=== PATIENT | male | born 1975 | race Caucasian/White ===

== ENCOUNTER 2020-06-06 16:54 | Emergency (ER) | payer SELFPAY ==
[~2020-06-06] VITALS: Ht 182 cm; Wt 79.0 kg
--- NOTE | 2020-06-06 18:30 | ED Cough/URI ---
General Chief Complaint: Cough/Cold/Flu Symptoms Stated Complaint: COUGH/SOB Nursing Triage Note: ARRIVED VIA AMB TO ROOM 10 IN [facility] WITH COMPLAINTS OF SOA AND COUGH SINCE LAST SATURDAY. SOA WORSE TODAY. Sepsis Screen: Possible Severe Sepsis Risk Source: patient History of Present Illness Date Seen by Provider: Jun 06, 2020 Time Seen by Provider: 18:08 Initial Comments PT ARRIVES VIA POV STATES HE WAS SENT HOME FROM WORK TODAY DUE TO COUGHING--WORKS AT [employer] STATES HE HAS BEEN SICK X 1 WEEK--BEGAN 05/31/20 C/O NON-PRODUCTIVE COUGH C/O SHORTNESS OF BREATH AT TIMES--MOSTLY ON EXERTION C/O SORE THROAT NO KNOWN FEVER NO LOSS OF TASTE/SMELL NO GI SYMPTOMS NO HEADACHE NO BODY ACHES MULTIPLE SICK CONTACTS AT WORK WITH [employer] HAS NOT SOUGHT CARE UNTIL TODAY SYMPTOMS A LITTLE WORSE TODAY HAS NOT TAKEN ANYTHING FOR SYMPTOMS NO PRIOR HISTORY OF RESPIRATORY PROBLEMS PT SMOKES 1 PPD, FORMER METH USER ( SMOKED IT), AND HX OF ETOH ABUSE--NO RECENT USE PCP: NONE--JUST MOVED HERE LESS THAN A MONTH AGO FROM [facility] Allergies and Home Medications Allergies Coded Allergies: shrimp (Verified Allergy, Severe, 06/06/20) Home Medications Azithromycin 500 Mg Tablet, 500 MG PO DAILY Prescribed by: WILVER AVENDANO on 06/06/201901 Benzonatate 100 Mg Capsule, 200 MG PO TID Prescribed by: WILVER AVENDANO on 06/06/201901 Dexamethasone 6 Mg Tablet, 6 MG PO DAILY Prescribed by: WILVER AVENDANO on 06/06/201901 Guaifenesin/Dextromethorphan 1 Each Tbmp.12hr, 1 EACH PO BID Prescribed by: WILVER AVENDANO on 06/06/201901 Patient Home Medication List Home Medication List Reviewed: Yes Review of Systems Review of Systems Constitutional: no symptoms reported; No chills, No diaphoresis, No dizziness, No fever, No malaise, No weakness EENTM: see HPI, nose congestion, throat pain Respiratory: see HPI, cough, dyspnea on exertion, short of breath, wheezing Cardiovascular: no symptoms reported Gastrointestinal: no symptoms reported Genitourinary: no symptoms reported Musculoskeletal: no symptoms reported Skin: no symptoms reported Psychiatric/Neurological: No Symptoms Reported Hematologic/Lymphatic: No Symptoms Reported Immunological/Allergic: no symptoms reported Past Bngoefm-Aydsuk-Gguphm Hx Patient Social History Alcohol Use: Occasionally Uses (HX OF ABUSE/HEAVYB USE) Recreational Drug Use: Yes (HX OF METH USE-SMOKED IT) Drug of Choice: HX OF METH USE-SMOKED IT Smoking Status: Current Everyday Smoker (1 PPD) Type Used: Cigarettes Recent Foreign Travel: No Contact w/Someone Who Travel: No Recent Infectious Disease Expo: No Recent Hopitalizations: No Seasonal Allergies Seasonal Allergies: Yes Past Medical History Surgeries: No Respiratory: Yes (BRONCHITIS A CHILD) Cardiac: No Neurological: No Genitourinary: No Gastrointestinal: No Musculoskeletal: No Endocrine: No HEENT: No Cancer: No Psychosocial: No Integumentary: No Blood Disorders: No Physical Exam Vital Signs - First Documented 06/06/20 17:10 Temp 35.6 Pulse 106 Resp 18 B/P (MAP) 130/90 (103) Pulse Ox 97 O2 Delivery Room Air Capillary Refill : Less Than 3 Seconds Height: '" Weight: lbs. oz. 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, no motor/sensory deficits, alert, normal mood/affect, oriented x 3 Skin: normal color, warm/dry, tattoos/piercings (MULTIPLE TATTOOS) Progress/Results/Core Measures Suspected Sepsis Recent Fever Within 48 Hours: No Infection Criteria Present: Suspected New Infection New/Unexplained Altered Menta: No Sepsis Screen: Possible Severe Sepsis Risk SIRS Temperature: Pulse: 106 Respiratory Rate: 18 Laboratory Tests 06/06/20 18:18: White Blood Count 8.9 Blood Pressure 130 /90 Mean: 103 Laboratory Tests 06/06/20 18:18: Creatinine 0.89, Platelet Count 256, Total Bilirubin 0.4 Results/Orders Lab Results Laboratory Tests Test 06/06/20 17:18 06/06/20 18:18 Range/Units Coronavirus 2019 ([facility]) Negative Negative White Blood Count 8.9 4.3-11.0 10^3/uL Red Blood Count 4.16 L 4.30-5.52 10^6/uL Hemoglobin 13.2 L 13.3-17.7 g/dL Hematocrit 38 L 40-54 % Mean Corpuscular Volume 90 80-99 fL Mean Corpuscular Hemoglobin 32 25-34 pg Mean Corpuscular Hemoglobin Concent 35 32-36 g/dL Red Cell Distribution Width 11.5 10.0-14.5 % Platelet Count 256 130-400 10^3/uL Mean Platelet Volume 10.1 9.0-12.2 fL Immature Granulocyte % (Auto) 1 % Neutrophils (%) (Auto) 71 42-75 % Lymphocytes (%) (Auto) 19 12-44 % Monocytes (%) (Auto) 7 0-12 % Eosinophils (%) (Auto) 2 0-10 % Basophils (%) (Auto) 0 0-10 % Neutrophils # (Auto) 6.3 1.8-7.8 10^3/uL Lymphocytes # (Auto) 1.7 1.0-4.0 10^3/uL Monocytes # (Auto) 0.6 0.0-1.0 10^3/uL Eosinophils # (Auto) 0.2 0.0-0.3 10^3/uL Basophils # (Auto) 0.0 0.0-0.1 10^3/uL Immature Granulocyte # (Auto) 0.0 0.0-0.1 10^3/uL Erythrocyte Sedimentation Rate 12 0-15 MM/HR D-Dimer < 0.27 0.00-0.49 UG/ML Sodium Level 140 135-145 MMOL/L Potassium Level 4.2 3.6-5.0 MMOL/L Chloride Level 105 98-107 MMOL/L Carbon Dioxide Level 28 21-32 MMOL/L Anion Gap 7 5-14 MMOL/L Blood Urea Nitrogen 10 7-18 MG/DL Creatinine 0.89 0.60-1.30 MG/DL Estimat Glomerular Filtration Rate > 60 BUN/Creatinine Ratio 11 Glucose Level 88 70-105 MG/DL Calcium Level 9.4 8.5-10.1 MG/DL Corrected Calcium 8.5-10.1 MG/DL Total Bilirubin 0.4 0.1-1.0 MG/DL Aspartate Amino Transf (AST/SGOT) 24 5-34 U/L Alanine Aminotransferase (ALT/SGPT) 19 0-55 U/L Alkaline Phosphatase 40 40-136 U/L Lactate Dehydrogenase 193 125-220 U/L C-Reactive Protein High Sensitivity 0.42 0.00-0.50 MG/DL B-Type Natriuretic Peptide 12.7 <100.0 PG/ML Total Protein 7.9 6.4-8.2 GM/DL Albumin 4.6 H 3.2-4.5 GM/DL Procalcitonin 0.02 <0.10 NG/ML Micro Results Microbiology 06/06/20 Influenza Types A,B Antigen (JOAO) - Final, Complete My Orders Orders - WILVER AVENDANO DO Influenza A And B Antigens (06/06/20 18:08) Covid 19 Inhouse Test (06/06/20 18:08) Ed Iv/Invasive Line Start (06/06/20 18:10) Monitor-Rhythm Ecg Trace Only (06/06/20 18:10) BNP (06/06/20 18:10) Cbc With Automated Diff (06/06/20 18:10) Comprehensive Metabolic Panel (06/06/20 18:10) Fibrin Degradation Products (06/06/20 18:10) Procalcitonin (Pct) (06/06/20 18:10) Hs C Reactive Protein (06/06/20 18:10) Erythrocyte Sedimentation Rate (06/06/20 18:10) LDH (06/06/20 18:10) Chest 1 View, Ap/Pa Only (06/06/20 18:10) Coronavirus Sars-Cov-2 So 2018 (06/06/20 18:58) Dexamethasone Injection (Decadron Inje (06/06/20 19:00) Albuterol/Ipratropium Inhaler (Combivent (06/06/20 21:00) Fluticasone/Salmeterol 115/21 (Advair Hf (06/06/20 21:00) Rt Request For Service (06/06/20 18:58) Azithromycin Tablet (Zithromax Tablet) (06/06/20 19:00) Medications Given in ED Current Medications Medications Dose Ordered Sig/Roldan Route Start Time Stop Time Status Last Admin Dose Admin Albuterol/ Ipratropium 1 PUFF QID ONCE IH 06/06/20 21:00 06/06/20 19:37 DC 06/06/20 19:28 4 GM Azithromycin 500 mg ONCE ONCE PO 06/06/20 19:00 06/06/20 19:03 DC 06/06/20 19:27 500 MG Dexamethasone Sodium Phosphate 6 mg ONCE ONCE IV 06/06/20 19:00 06/06/20 19:03 DC 06/06/20 19:28 6 MG Salmeterol Xinafoate/ Fluticasone 2 PUFFS RTBID ONCE IH 06/06/20 21:00 06/06/20 19:37 DC 06/06/20 19:28 60 PUFF Vital Signs/I&O 06/06/20 17:10 Temp 35.6 Pulse 106 Resp 18 B/P (MAP) 130/90 (103) Pulse Ox 97 O2 Delivery Room Air Capillary Refill : Less Than 3 Seconds Blood Pressure Mean: 103 Progress Note : Progress Note PLACED IN ISOLATION ROOM PPE WORN AT ALL TIMES COVID-19 TESTING PERFORMED PT ADVISED OF NEED FOR QUARANTINE NO HYPOXIA, NO DYSPNEA DURING ER STAY GIVEN DECADRON, AND INHALER TREATMENTS WITH MUCH IMPROVEMENT OF SYMPTOMS Diagnostic Imaging Comments CXR--PER RADIOLOGIST REPORT AT 1900 NO ACUTE PROCESS Reviewed: Reviewed by Me Departure Impression Primary Impression: Person under investigation for COVID-19 Additional Impression: Bronchitis Disposition: 01 HOME, SELF-CARE Condition: Stable Departure-Patient Inst. Referrals: NO,LOCAL PHYSICIAN (PCP/Family) Primary Care Physician Patient Instructions: Coronavirus Disease 2019 (COVID-19) (DC), Preventing the Spread of an Infectious Disease, Acute Bronchitis, Adult (DC) Add. Discharge Instructions: USE ADVAIR INHALER 2 PUFFS TWICE A DAY EVERY DAY USE COMBIVENT INHALER 2 PUFFS EVERY 4 HOURS NEEDED FOR BREATHING TYLENOL 1 GRAM/ MOTRIN 800 MG NEEDED FOR PAIN OR FEVER LOTS 0F CLEAR LIQUIDS QUARANTINE YOURSELF AND ALL HOUSEHOLD MEMBERS AND CLOSE CONTACTS FOR 2 WEEKS OR UNTIL CLEARED BY OR HEALTH DEPT. FOLLOW UP WITH OF FEI IN 5-7 DAYS IF NO BETTER, RETURN TO ER IF WORSE All discharge instructions reviewed with patient and/or family. Voiced understanding. Scripts Guaifenesin/Dextromethorphan (Mucinex Dm ER 1,200-60 mg Tab) 1 Each Tbmp.12hr 1 EACH PO BID, #30 EA Prov: WILVER AVENDANO DO 06/06/20 Benzonatate (TESSALON PERLES) 100 Mg Capsule 200 MG PO TID, #60 CAP Prov: WILVER AVENDANO DO 06/06/20 Dexamethasone (Decadron) 6 Mg Tablet 6 MG PO DAILY, #10 TAB Prov: WILVER AVENDANO DO 06/06/20 Azithromycin (Zithromax) 500 Mg Tablet 500 MG PO DAILY for 5 Days, #5 TAB Prov: WILVER AVENDANO DO 06/06/20 Work/School Note: Local [employer] Staff Listing, Work Release Form Date Seen in the Emergency Department: Jun 06, 2020 Return to Work: Jun 20, 2020 Restrictions: Need Release from Doctor WILVER AVENDANO DO Jun 06, 2020 18:30
[2020-06-06 18:31] LABS: BASOPHILS % (AUTO) 0 % (0-10); EOSINOPHILS # (AUTO) 0.2 10^3/uL (0.0-0.3); EOSINOPHILS % (AUTO) 2 % (0-10); HEMATOCRIT 38 % (40-54); HEMOGLOBIN 13.2 g/dL (13.3-17.7); LYMPHOCYTES # (AUTO) 1.7 10^3/uL (1.0-4.0); LYMPHOCYTES % (AUTO) 19 % (12-44); MEAN CORPUSCULAR HEMOGLOBIN 32 pg (25-34); MEAN CORPUSCULAR HGB CONC 35 g/dL (32-36); MEAN CORPUSCULAR VOLUME 90 fL (80-99); MEAN PLATELET VOLUME 10.1 fL (9.0-12.2); MONOCYTES # (AUTO) 0.6 10^3/uL (0.0-1.0); MONOCYTES % (AUTO) 7 % (0-12); NEUTROPHILS # (AUTO) 6.3 10^3/uL (1.8-7.8); NEUTROPHILS % (AUTO) 71 % (42-75); PLATELET COUNT 256 10^3/uL (130-400); WHITE BLOOD COUNT 8.9 10^3/uL (4.3-11.0)
[2020-06-06 18:48] LABS: ALANINE AMINOTRANSFERASE 19 U/L (0-55); ALBUMIN 4.6 GM/DL (3.2-4.5); ALKALINE PHOSPHATASE 40 U/L (40-136); BILIRUBIN,TOTAL 0.4 MG/DL (0.1-1.0); BUN/CREATININE RATIO 11; CALCIUM 9.4 MG/DL (8.5-10.1); CARBON DIOXIDE 28 MMOL/L (21-32); CHLORIDE 105 MMOL/L (98-107); CREATININE SERUM 0.89 MG/DL (0.60-1.30); GFR ESTIMATED > 60; GLUCOSE 88 MG/DL (70-105); POTASSIUM 4.2 MMOL/L (3.6-5.0); SODIUM 140 MMOL/L (135-145); TOTAL PROTEIN 7.9 GM/DL (6.4-8.2)
[2020-06-06 18:51] LABS: ERYTHROCYTE SEDIMENTATION RATE 12 MM/HR (0-15)
--- NOTE | 2020-06-06 18:52 | Diagnostic Imaging Report ---
EXAMINATION: Chest 1 view HISTORY: Cough, dyspnea, exposed to Covid COMPARISON: None available. FINDINGS: The lungs are clear without edema or pneumonia. No pleural effusion or pneumothorax. Heart size is normal. IMPRESSION: 1. Clear lungs. Dictated by: Dictated on workstation # [id number]
[2020-06-06] MEDS ORDERED: AZITHROMYCIN 250 MG TAB (ZITHROMAX) PO ONE (19:00)
[2020-06-06] MEDS ORDERED: DEXA6TAB6 PO (19:02)
[2020-06-06] MEDS ORDERED: GUAI1TBM19 PO (19:02)
[2020-06-06] MEDS ORDERED: AZIT500T PO (19:02)
[2020-06-06] MEDS ORDERED: BENZ100C18 PO (19:02)
[2020-06-06 19:35] VITALS: BP 131/91
[2020-06-06] MEDS ORDERED: ADVAIR HFA 115/21 MCG INHALER 8 GM IH ONE (21:00)
[2020-06-06] MEDS ORDERED: ALBUTEROL/IPRATROP (COMBIVENT RESPIMAT) 4 GM INHALER IH ONE (21:00)
--- NOTE | 2020-06-08 09:15 | NUR ---
Notified of positive COVID test.
== END 2020-06-06 19:36 | disposition home or self-care (01) ==
LOC: ER 17:09
DX: U07.1 COVID-19 (principal); J40 Bronchitis, not specified as acute or chronic; F17.210 Nicotine dependence, cigarettes, uncomplicated
CPT/HCPCS: 71045; 80053; 83615; 83880; 84145; 85025; 85379; 85652; 86141; 87804; 93041; 99284; U0002; 36415; 87635